=== PATIENT | female | born 2005 | race African-American/Black ===

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

== ENCOUNTER 2023-02-21 16:23 | Emergency (ER) | payer MEDICAID, OTHER ==
[~2023-02-21] VITALS: Ht 154.9 cm; Wt 59.0 kg
[2023-02-21 16:35] VITALS: BP 106/73
[2023-02-21] MEDS ORDERED: TETANUS, DIPHTHERIA, PERTUSSIS VAC/PF 0.5ML (>10YR OLD) IM ONE (18:30)
== END 2023-02-21 20:39 | disposition left against medical advice (07) ==
LOC: ER 16:23
DX: Z53.21 Procedure and treatment not carried out due to patient leaving prior to being seen by health care provider (principal)
CPT/HCPCS: 99281